=== PATIENT | female | born 1995 | race Caucasian/White ===

== ENCOUNTER 2017-01-05 19:00 | Emergency (ER) | payer OTHER ==
--- NOTE | ~2017-01-05 | CR127 ---
[facility] A Service of [facility] & [facility] RADIOLOGY TEXT RESULTS PATIENT: RAVEN MOORE LOCATION: SED : [birth year] UNIT #: [id number] AGE: [address]: SEN TIPTON SEX: F ORDER DR: [id number] [place] [id number] E MR#: [id number] Acc #: [id number] NAME: RAVEN MOORE : 1995 SEX: F STUDY DATE/TIME: 01/05/2017 20:09 UNIT: SED ROOM: STUDY DESCRIPTION: CR Foot Complete Min 3 View Rt Attending Physician: Sen Tipton Ordering Physician: Gi Wright Pa-C Primary Care Physician: Primary Care Physician No MEDICAL IMAGING REPORT This report is preliminary unless electronic signature is present. EXAM Right foot, 01/05/17 HISTORY Foot pain started yesterday, no trauma FINDINGS The tarsal, metatarsal, and phalangeal elements are all anatomically normal in position and alignment. There are no articular defects. No fractures or radiopaque foreign bodies in the soft tissues are apparent. IMPRESSION Normal foot. Dictated by... Riccardo Jasmine Jr., M.D. THIS IS AN ELECTRONICALLY VERIFIED REPORT Riccardo Jasmine Jr., M.D. at 01/08/2017 4:23 PM FARRUKH/[email or web address] TD: 01/06/2017 07:37 JOB #: [id number] MEDICAL IMAGING REPORT Page 1 of 1
[~2017-01-05 19:00] MED LIST: AMOX TR-K CLV 81 TA1 PO; AMOXICILLIN500 M1; AMOXICILLIN500 M1 PO; BIRTH CONTROL PILL PO; CILOXAN 0.3% O2.5 M1; MEDROL4 MG/DOSE- PO; MOTRIN100 MG PO; MOTRIN600 M1 PO; NO MEDICATIONS; PHENERGAN25 MG PO; PRENATAL1 TA1 PO; PROMETHAZINE D118 ML PO
[2017-01-05] MEDS ORDERED: EFFEXOR (19:09)
== END 2017-01-05 20:50 | disposition home or self-care (01) ==
LOC: SED 19:00
DX: M79.671 Pain in right foot (principal); F32.9 Major depressive disorder, single episode, unspecified; F17.210 Nicotine dependence, cigarettes, uncomplicated; Y93.39 Activity, other involving climbing, rappelling and jumping off
CPT/HCPCS: 29540; 73630; 99283